=== PATIENT | female | born 1955 | race Caucasian/White ===

== ENCOUNTER 2016-05-14 07:18 | Day surgery (SDC) | payer OTHER ==
[2016-05-13 13:17] VITALS: BMI 21.9
[2016-05-14] MEDS ORDERED: PROPOFOL 20 ML ONE ×2 (07:37)
[2016-05-14 09:28] VITALS: BP 102/65; PULSE 69; TEMP 98
== END 2016-05-14 09:30 | disposition home or self-care (01) ==
LOC: FASU-ENDO 07:18
PROVIDERS: ATTEND Internal Medicine Gastroenterology
PROC: 0DJD8ZZ Inspection of Lower Intestinal Tract, Via Natural or Artificial Opening Endoscopic (ICD-10-PCS; principal; 2016-05-14 08:26)
DX: Z12.11 Encounter for screening for malignant neoplasm of colon (principal); K57.30 Diverticulosis of large intestine without perforation or abscess without bleeding